=== PATIENT | male | born 1960 | race Caucasian/White ===

== ENCOUNTER 2019-11-08 08:00 | Emergency (ER) | payer BC ==
[~2019-11-08] VITALS: Ht 182.9 cm; Wt 78.9 kg
--- NOTE | 2019-11-08 08:11 | NUR ---
ERMD at bedside for MSE
--- NOTE | 2019-11-08 08:20 | NUR ---
Patient ambulated with stable gait. Speech is clear, speaks in complete sentences. No acute neuro deficits noted. A/Ox4. Patient came for c/o cough, fever, and MANUEL x3 days. Respiratory even and unlabored, no sob. No cardiovascular distress noted, denies any cp, all pulses palpable, cap refill <3 seconds. Patient reported having nausea w/o any vomiting, no report of any distress (dysuria, or any urinary issues) at this time. Patient in bed at lowest position, sr upx2, call light within reach. Fall precautions implemented per protocol.
[2019-11-08] MEDS ORDERED: ONDANSETRON 4 MG/2 ML VIAL ONE (08:26)
[2019-11-08] MEDS ORDERED: KETOROLAC TROMETHAMINE 30 MG INJ ONE (08:26)
[2019-11-08] MEDS ORDERED: ONDANSETRON 4 MG/2 ML VIAL IV ONE (08:30)
[2019-11-08] MEDS ORDERED: KETOROLAC TROMETHAMINE 30 MG INJ IVP ONE (08:30)
[2019-11-08] MEDS ORDERED: IV NORMAL SALINE 1000 ML BAG IV ONE (08:30)
[2019-11-08] MEDS ORDERED: PSEUDOEPHEDRINE HCL 30 MG TABLET ONE (09:23)
[2019-11-08] MEDS ORDERED: PSEUDOEPHEDRINE HCL 30 MG TABLET PO ONE (09:30)
--- NOTE | 2019-11-08 09:41 | NUR ---
Patient discharged to home in stable conditon. Written and verbal after care instructions given. Patient verbalizes understanding of instructions. Patient ambulated with stable gait. IV removed. Catheter intact and site benign. Pressure and 4x4 gauze applied to site. No bleeding noted.
[2019-11-08 09:42] VITALS: BP 145/89
== END 2019-11-08 09:42 | disposition home or self-care (01) ==
LOC: ER 08:00
DX: J10.1 Influenza due to other identified influenza virus with other respiratory manifestations (principal); E78.5 Hyperlipidemia, unspecified; F41.9 Anxiety disorder, unspecified; Z88.0 Allergy status to penicillin; Z91.013 Allergy to seafood
CPT/HCPCS: 71045; 87400; 96374; 96375; 99284; J1885; J2405; A4663; J7030